=== PATIENT | male | born 1985 | race Caucasian/White ===

== ENCOUNTER 2018-01-02 11:04 | Emergency (ER) | payer BC ==
[2018-01-02 11:12] VITALS: BMI 30.1
[2018-01-02 11:14] VITALS: O2SAT 98
--- NOTE | 2018-01-02 13:28 | C.PDOC ---
History Of Present Illness 32yo male, comes to ER reporting pain in right shoulder for a couple of months. Patient states the pain started after he is working out but is not present while doing the exercises; he states the pain has been progressively worsening. He has been using Bengay cream with no relief of symptoms. Otherwise, no chest pain, weakness, numbness or tingling. No other complaints. Time Seen by Provider: 01/02/18 11:24 Chief Complaint (Nursing): Upper Extremity Problem/Injury History Per: Patient History/Exam Limitations: no limitations Onset/Duration Of Symptoms: Persistent Exacerbating Factor(s): Strenuous Use Of Affected Area Additional History Per: Patient Past Medical History Reviewed: Historical Data, Nursing Documentation, Vital Signs Vital Signs: Last Vital Signs Temp 97.7 F 01/02/18 11:12 Pulse 64 01/02/18 11:12 Resp 18 01/02/18 11:12 BP 123/70 01/02/18 11:12 Pulse Ox 98 01/02/18 11:12 - Medical History PMH: No Chronic Diseases Surgical History: No Surg Hx Family History: States: Unknown Family Hx - Social History Hx Alcohol Use: No Hx Substance Use: No - Immunization History Hx Tetanus Toxoid Vaccination: No Hx Influenza Vaccination: No Hx Pneumococcal Vaccination: No Review Of Systems Except As Marked, All Systems Reviewed And Found Negative. Musculoskeletal: Positive for: Shoulder Pain Neurological: Negative for: Weakness, Numbness Physical Exam - Physical Exam Appears: Non-toxic, No Acute Distress Skin: Normal Color Head: Atraumatic, Normacephalic Eye(s): bilateral: Normal Inspection Neck: Supple Chest: Symmetrical, No Tenderness Cardiovascular: Rhythm Regular Respiratory: Normal Breath Sounds Extremity: Normal ROM (+ Decreased ROM at right shoulder due to pain; FROM right elbow, wrist and fingers.), Tenderness (tenderness right anterior shoulder), Capillary Refill (< 2 seconds), No Deformity, No Swelling, Other (distal sensations normal) Neurological/Psych: Oriented x3, Normal Motor, Normal Sensation ED Course And Treatment O2 Sat by Pulse Oximetry: 98 (RA) Pulse Ox Interpretation: Normal - Other Rad Right shoulder X-Ray: Read By Radiologist Interpretation: FINDINGS: BONES: Bone alignment and mineralization are normal. There is no acute displaced fracture or bone destruction. JOINTS: Normal. Glenohumeral and acromioclavicular joints preserved. SOFT TISSUES: Normal. OTHER FINDINGS: None. IMPRESSION: No acute fracture or dislocation. Progress Note: XR Right shoulder ordered. XR reviewed, no fractures or dislocations noted. Patient discharged home with pain medications and instructed to follow up with orthopedist. Disposition - Disposition Referrals: Patrizia George MD [Staff Provider] - Disposition: HOME/ ROUTINE Disposition Time: 13:26 Condition: STABLE Additional Instructions: FOLLOW UP WITH ORTHOPEDIST WITHIN 2-3 DAYS. RETURN TO ED IF FEEL WORSE. Prescriptions: Ibuprofen [Motrin Tab] 600 mg PO Q8 #30 tab Instructions: Shoulder Pain (DC) Forms: [employer] (Bengali) - Clinical Impression Clinical Impression: Shoulder pain - PA / [facility] / Resident Statement MD/DO has reviewed & agrees with the documentation as recorded. - Scribe Statement The provider has reviewed the documentation as recorded by the Jorgeibe Tonia Rob Provider Attestation: All medical record entries made by the Jorgeibenriqueta were at my direction and personally dictated by me. I have reviewed the chart and agree that the record accurately reflects my personal performance of the history, physical exam, medical decision making, and the department course for this patient. I have also personally directed, reviewed, and agree with the discharge instructions and disposition.
[2018-01-02 13:52] VITALS: BP 128/70; PULSE 80; RESP 16; TEMP 98.2
--- NOTE | 2018-01-02 14:04 | RAD ---
Date of service: 01/02/2018 PROCEDURE: Radiographs of the Right Shoulder HISTORY: pain x 1 month COMPARISON: No prior. FINDINGS: BONES: Bone alignment and mineralization are normal. There is no acute displaced fracture or bone destruction. JOINTS: Normal. Glenohumeral and acromioclavicular joints preserved. SOFT TISSUES: Normal. OTHER FINDINGS: None. IMPRESSION: No acute fracture or dislocation.
== END 2018-01-02 13:51 | disposition home or self-care (01) ==
LOC: C.ER 11:04
DX: M25.511 Pain in right shoulder (principal)